=== PATIENT | male | born 1975 | race African-American/Black ===

== ENCOUNTER 2022-02-03 19:22 | Emergency (ER) | payer SELFPAY ==
[2022-02-03 20:20] LABS: Absolute Lymphocytes (CBC) 4.3 K/uL (0.7-4.9); Hematocrit 28.7 % (39.6-49.0); Lymphocytes % 20.7 % (15.3-44.8); MPV 6.7 fL (7.6-11.3); RBC Red Blood Cell Count 4.06 M/uL (4.33-5.43)
[2022-02-03] MEDS ORDERED: ACETAMINOPHEN 325 MG TABLET ONE (20:21)
[2022-02-03] MEDS ORDERED: MORPHINE 4 MG/ML SYR ONE (20:22)
[2022-02-03] MEDS ORDERED: NA CHLORIDE 0.9% 1,000 ML ONE (20:22)
[2022-02-03] MEDS ORDERED: ONDANSETRON 4 MG/2 ML VIAL ONE (20:22)
[2022-02-03 20:26] LABS: Protime INR 1.59
[2022-02-03 20:40] LABS: ALT/SGPT 38 U/L (12-78); AST/SGOT 28 U/L (15-37); Albumin 2.4 g/dL (3.4-5.0); Alkaline Phosphatase 186 U/L (45-117); BUN Blood Urea Nitrogen 7 mg/dL (7-18); Bicarbonate 23 mmol/L (21-32); Bilirubin Total 0.4 mg/dL (0.2-1.0); Glucose Level 101 mg/dL (74-106); Potassium 3.8 mmol/L (3.5-5.1); Protein, Total 9.5 g/dL (6.4-8.2); Sodium Level 131 mmol/L (136-145)
--- NOTE | 2022-02-03 20:58 | EDPHYS ---
Physician Documentation [facility] Name: Sea Lewis Age: 46 yrs Sex: Male : 1975 Arrival Date: 02/03/2022 Time: 19:28 Bed 15 Private MD: ED Physician Gage Pineda HPI: 02/03 20:08 This 46 yrs old Black Male presents to ER via EMS with complaints of Abdominal Pain. mh7 20:08 The patient presents with abdominal pain in the right upper quadrant. Onset: The mh7 symptoms/episode began/occurred 3 week(s) ago. The symptoms do not radiate. Associated signs and symptoms: Pertinent positives: fever, Pertinent negatives: nausea, vomiting, and diarrhea, anorexia, blood in stools, chest pain, constipation, diarrhea, dysuria, headache, hematuria, palpitations, shortness of breath, testicular pain, vomiting, vomiting blood. Associated signs and symptoms: Pertinent positives: dry cough. The symptoms are described as intermittent, vague, waxing/waning. Modifying factors: The symptoms are alleviated by nothing, the symptoms are aggravated by nothing. Severity of pain: At its worst the pain was moderate 14 day(s) ago, in the emergency department the pain has improved moderately. Patient reports that he was admitted to an outside hospital for abdominal pain about 3 weeks ago and left AMA today. He is not sure of the details of his diagnosis or tests at the other hospital.. Historical: - Allergies: 19:35 No Known Allergies; lp1 - Home Meds: 19:35 None [Active]; lp1 - PMHx: 19:35 ulcers; lp1 - PSHx: 19:35 None; lp1 - Immunization history:: Adult Immunizations up to date, Client reports having NOT received the Covid vaccine. - Social history:: Smoking status: Patient/guardian denies using tobacco, Stopped _ months ago 6. ROS: 20:08 Eyes: Negative for injury, pain, redness, and discharge, ENT: Negative for injury, mh7 pain, and discharge, Neck: Negative for injury, pain, and swelling, Cardiovascular: Negative for chest pain, palpitations, and edema, Back: Negative for injury and pain, : Negative for injury, bleeding, discharge, and swelling, MS/Extremity: Negative for injury and deformity, Skin: Negative for injury, rash, and discoloration, Neuro: Negative for headache, weakness, numbness, tingling, and seizure, Psych: Negative for depression, anxiety, suicide ideation, homicidal ideation, and hallucinations, Allergy/Immunology: Negative for hives, rash, and allergies, Endocrine: Negative for neck swelling, polydipsia, polyuria, polyphagia, and marked weight changes, Hematologic/Lymphatic: Negative for swollen nodes, abnormal bleeding, and unusual bruising. Exam: 20:08 Constitutional: This is a well developed, well nourished patient who is awake, alert, mh7 and in no acute distress. Head/Face: Normocephalic, atraumatic. Eyes: Pupils equal round and reactive to light, extra-ocular motions intact. Lids and lashes normal. Conjunctiva and sclera are non-icteric and not injected. Cornea within normal limits. Periorbital areas with no swelling, redness, or edema. Neck: Trachea midline, no thyromegaly or masses palpated, and no cervical lymphadenopathy. Supple, full range of motion without nuchal rigidity, or vertebral point tenderness. No Meningismus. Chest/axilla: Normal chest wall appearance and motion. Nontender with no deformity. No lesions are appreciated. 20:08 Skin: Warm, dry with normal turgor. Normal color with no rashes, no lesions, and no evidence of cellulitis. MS/ Extremity: Pulses equal, no cyanosis. Neurovascular intact. Full, normal range of motion. Neuro: Awake and alert, GCS 15, oriented to person, place, time, and situation. Cranial nerves II-XII grossly intact. Motor strength 5/5 in all extremities. Sensory grossly intact. Cerebellar exam normal. Normal gait. Psych: Awake, alert, with orientation to person, place and time. Behavior, mood, and affect are within normal limits. 20:08 Cardiovascular: Rate: tachycardic, Rhythm: regular, Pulses: no pulse deficits are appreciated, Heart sounds: normal, normal S1and S2, Edema: is not appreciated, JVD: is not appreciated. 20:08 Respiratory: the patient does not display signs of respiratory distress, Respirations: normal, Breath sounds: decreased breath sounds, that are mild, are scattered, rhonchi, that are mild, are scattered, Respiratory rate: 20 20:08 Abdomen/GI: Inspection: abdomen appears normal, Bowel sounds: normal, in all quadrants, Palpation: mild abdominal tenderness, in the right upper quadrant, mass, is not appreciated, rebound tenderness, is not appreciated, voluntary guarding, is not appreciated, involuntary guarding, is not appreciated, no appreciated organomegaly, Rectal exam: the exam is deferred, because of patient request, Indicators: McBurney's point is not tender, Jorgensen's sign is negative, Rovsing's sign is negative, Obturator sign is negative, Psoas sign is negative, Liver: no appreciated palpable abnormalities, Hernia: not appreciated. Vital Signs: 19:36 BP 139 / 86; Pulse 115; Resp 20; Temp 101.6(O); Pulse Ox 90% on R/A; Weight 104.33 kg lp1 (R); Height 6 ft. 3 in. (190.50 cm); Pain 0/10; 19:36 Body Mass Index 28.75 (104.33 kg, 190.50 cm) lp1 MDM: 20:50 Differential diagnosis: bowel obstruction, cholecystitis, Cholelithiasis, mh7 diverticulitis, gastritis, gastroesophageal reflux disease, Irritable bowel syndrome, non-specific abd pain, pancreatitis, Peptic Ulcer Disease, Perf. Duodenal Ulcer, Perf. Gastric Ulcer, Pyelonephritis, Ureterolithiasis, urinary tract infection. Data reviewed: vital signs, nurses notes, lab test result(s), CBC. Refusal of service: The patient/guardian displays adequate decision making capability and despite a detailed discussion of alternatives, benefits, risks, and consequences refuses: Admission to the hospital for further work-up and treatment, CT Scan, all lab tests, Medications, ultrasound. ED course: NAD, A A\\T\\ O x 4, no focal neurological deficits. Patient declined any further treatment, testing or evaluation and wants to leave against medical advice. Explained the possibility of permanent disability and/or if serious medical or surgical condition is present and goes undiagnosed/untreated. Patient has a normal mental status and neurological exam and verbalized that he understood this information as presented. He states that he will follow up with his doctor. He knows he can return to the ER if he has any concerns.. 02/03 19:55 Order name: Blood Culture Adult (2) [facility] 02/03 19:55 Order name: CBC with Diff [facility] 02/03 19:55 Order name: CMP; Complete Time: 20:43 [facility] 02/03 19:55 Order name: Lactate; Complete Time: 20:43 [facility] 02/03 19:55 Order name: Protime (+inr); Complete Time: 20:43 [facility] 02/03 19:55 Order name: Ptt, Activated; Complete Time: 20:43 [facility] 02/03 19:56 Order name: Procalcitonin [facility] 02/03 19:57 Order name: COVID-19 SARS RT PCR (Document "Date of Onset" if Symptomatic) [facility] 02/03 19:55 Order name: Accucheck [facility] 02/03 19:55 Order name: Cardiac monitoring; Complete Time: 20:28 [facility] 02/03 19:55 Order name: EKG - Nurse/Tech; Complete Time: 20:28 [facility] 02/03 19:55 Order name: IV Saline Lock - Large Bore; Complete Time: 20:28 [facility] 02/03 19:55 Order name: Labs collected and sent; Complete Time: 20:28 [facility] 02/03 19:55 Order name: O2 Per Protocol; Complete Time: 20:28 [facility] 02/03 19:55 Order name: O2 Sat Monitoring; Complete Time: 20:28 [facility] 02/03 19:55 Order name: Urine Dipstick-Ancillary (obtain specimen) [facility] Administered Medications: 20:23 Drug: Tylenol 650 mg Route: PO; sm5 20:23 Drug: NS 0.9% 1000 ml Route: IV; Rate: 1000 ml; Site: right antecubital; sm5 20:27 Not Given (Patient Refused): morphine 4 mg IVP once; RASS on ADMIN: Combtv4, Very sm5 Agttd3, Agttd2, Rstlss1, AlertClm0, Drwsy-1, Lt Sdtn-2, Mod Sdtn-3, Dp Sdtn-4, UnArsble-5 20:28 Not Given (Patient Refused): Zofran (Ondansetron) 4 mg IVP once; over 2 minutes sm5 20:47 Not Given (Patient Refused): vancoMYCIN 1 grams IVPB once over 2 hrs sm5 20:47 Not Given (Patient Refused): Zosyn (piperacillin-tazobactam) 3.375 grams IVPB once over sm5 60 mins; (mix in NS 100 mL) Disposition Summary: 02/03/22 20:57 Left Against Medical Advice Location: Home 5 Condition: Stable 5 Discharge Instructions: - Discharge Summary Sheet [facility] - Abdominal Pain, Adult, Kgip-[id number] [facility] - Fever, Adult, Rass-hq-Wdth [facility] Prescriptions: - Flagyl 500 mg Oral Tablet - take 1 tablet by ORAL route every 6 hours for 10 days; 40 tablet; Refills: 0, 7 Product Selection Permitted - levofloxacin 500 mg Oral Tablet - take 1 tablet by ORAL route once daily for 10 days; 10 tablet; Refills: 0, 7 Product Selection Permitted Signatures: Dispatcher [employer] Radha Up RN RN lp1 Gage Pineda MD MD 7 Estefania Brenner RN RN 5 Corrections: (The following items were deleted from the chart) 20:52 19:56 Chest Single View+RAD.RAD.BRZ ordered. EDAK EDAK
--- NOTE | 2022-02-03 20:58 | ER ---
Nurse's Notes [facility] Name: Sea Lewis Age: 46 yrs Sex: Male : 1975 Arrival Date: 02/03/2022 Time: 19:28 Bed 15 Private MD: Diagnosis: Presentation: 02/03 19:31 Chief complaint: EMS states: Called for RUQ abdominal pain; patient left AMA from [address] today for same complaint after argument with family member, and would like to be admitted for continued treatment. Onset of symptoms was February 03, 2022. 19:31 Method Of Arrival: EMS: [facility] 19:31 Acuity: BRENDON 2 [facility] 19:34 Note "I was at [facility] and I was going to be released tomorrow but me and my sister got [facility] into it and I left the hospital but Dr. Alvares said he will see me at this hospital"; Reports receiving treatment for his stomach ulcers. 19:35 Coronavirus screen: At this time, the client does not indicate any symptoms associated [facility] with coronavirus-19. Ebola Screen: No symptoms or risks identified at this time. Risk Assessment: Do you want to hurt yourself or someone else? Patient reports no desire to harm self or others. Note Patient reports he has stomach ulcers. 19:36 Initial Sepsis Screen: Does the patient meet any 2 criteria? Temp <36.0*C (96.8*F)) or lp1 > 38.3*C (100.9*F). HR > 90 bpm. Does the patient have a suspected source of infection? Yes: Acute abdominal pain. Triage Assessment: 20:55 General: Appears in no apparent distress. Behavior is appropriate for age. Pain: Denies sm5 pain. GI: Abdomen is flat, non-distended. Historical: - Allergies: 19:35 No Known Allergies; lp1 - Home Meds: 19:35 None [Active]; lp1 - PMHx: 19:35 ulcers; lp1 - PSHx: 19:35 None; lp1 - Immunization history:: Adult Immunizations up to date, Client reports having NOT received the Covid vaccine. - Social history:: Smoking status: Patient/guardian denies using tobacco, Stopped _ months ago 6. Screenin:54 Abuse screen: Denies threats or abuse. Denies injuries from another. Nutritional sm5 screening: No deficits noted. Tuberculosis screening: No symptoms or risk factors identified. Fall Risk None identified. Assessment: 20:48 Reassessment: pt rang call askew stating he wants to leave and see Dr. Alvares in the sm5 morning at his office. this RN explained to pt that a full work up is in progress and if he is sick due to something other than GI related, Dr Alvares will be unable to help, Informed pt he should consider staying to finish his work up to find out what is causing his fever and high heart rate. Pt still adamant that he wants to leave and go to Dr. Alvares's office in the morning. Explained to pt the risks of leaving, Dr. Pineda made aware, pt signed AMA form and IV removed.. 20:55 GI: Bowel sounds present X 4 quads. Abd is soft. sm5 Vital Signs: 19:36 BP 139 / 86; Pulse 115; Resp 20; Temp 101.6(O); Pulse Ox 90% on R/A; Weight 104.33 kg lp1 (R); Height 6 ft. 3 in. (190.50 cm); Pain 0/10; 19:36 Body Mass Index 28.75 (104.33 kg, 190.50 cm) lp1 ED Course: 19:28 Patient arrived in ED. kz 19:32 Triage completed. lp1 19:32 Arm band placed on right wrist. lp1 19:43 Estefania Brenner, MYNOR is Primary Nurse. sm5 19:44 Gage Pineda MD is Attending Physician. 7 19:45 Inserted saline lock: 20 gauge in right antecubital area, using aseptic technique. sm5 Blood collected. 20:55 Patient has correct armband on for positive identification. Placed in gown. Bed in low sm5 position. Call light in reach. 20:55 No provider procedures requiring assistance completed. IV discontinued, intact, sm5 bleeding controlled, No redness/swelling at site. Pressure dressing applied. Administered Medications: 20:23 Drug: Tylenol 650 mg Route: PO; sm5 20:23 Drug: NS 0.9% 1000 ml Route: IV; Rate: 1000 ml; Site: right antecubital; sm5 20:27 Not Given (Patient Refused): morphine 4 mg IVP once; RASS on ADMIN: Combtv4, Very sm5 Agttd3, Agttd2, Rstlss1, AlertClm0, Drwsy-1, Lt Sdtn-2, Mod Sdtn-3, Dp Sdtn-4, UnArsble-5 20:28 Not Given (Patient Refused): Zofran (Ondansetron) 4 mg IVP once; over 2 minutes 5 20:47 Not Given (Patient Refused): vancoMYCIN 1 grams IVPB once over 2 hrs sm5 20:47 Not Given (Patient Refused): Zosyn (piperacillin-tazobactam) 3.375 grams IVPB once over sm5 60 mins; (mix in NS 100 mL) Outcome: 20:55 AMA AMA form signed [facility] 20:55 Condition: unchanged 20:55 Instructed on risks of signing out AMA, educated to come back if fever or abdominal pain worsens 20:57 Patient left the ED. [facility] Signatures: Radha Gonzales RN RN 1 Gage Pineda MD MD [facility] Estefania Brenner RN RN [facility] Eunice Curtis Corrections: (The following items were deleted from the chart) 19:33 19:31 Chief complaint: EMS states: Called for RUQ abdominal pain; patient left AMA from [address] today for same complaint after argument with family member, and would like to be admitted for continued treatment [facility] 19:33 19:31 Method Of Arrival: Wheelchair [place] [id number] 19:39 19:34 Note "I was at [facility] and I was going to be released tomorrow but me and my [facility] sister got into it and I left the hospital but Dr. Alvares said he will see me at this hospital" [facility] 19:40 19:31 Acuity: BRENDON 3 [place] [id number]
[2022-02-03 21:41] LABS: Anisocytosis 1+; Blood Morphology Comment NOTED (NOT SEEN); Platelet Estimate INCR; Polychromasia SLIGHT
[2022-02-04 04:23] VITALS: BP 139/86; TEMP 101.6; O2SAT 90
--- NOTE | 2022-02-05 07:57 | EKG ---
Test Date: 2022-02-03 Test Time: 20:02:54 Felt Tipping Machine Tender: KALPANA MEASUREMENT RESULTS: Intervals: Rate: 106 VT: 146 QRSD: 80 QT: 360 QTc: 478 [place]: P: 35 VT: 146 QRS: 62 T: 93 INTERPRETIVE STATEMENTS: Sinus tachycardia Possible Left atrial enlargement Left ventricular hypertrophy T wave abnormality, consider lateral ischemia Abnormal ECG No previous ECG available for comparison Electronically Signed On 02-05-22 07:55:35 CDT by Isaac Dyer
== END 2022-02-03 20:57 | disposition left against medical advice (07) ==
LOC: ER 19:22
DX: R10.11 Right upper quadrant pain (principal); R50.9 Fever, unspecified; Z20.822 Contact with and (suspected) exposure to COVID-19
CPT/HCPCS: 36415; 80053; 83605; 84145; 85025; 85610; 85730; 87040; 93005; 99284; J2405; J7030; U0003

== ENCOUNTER 2022-02-04 05:44 | Emergency (ER) | payer SELFPAY ==
[2022-02-04] MEDS ORDERED: PIPERACIL/TAZO 3.375 GM VIAL IV ONE (08:10)
[2022-02-04] MEDS ORDERED: MORPHINE 4 MG/ML SYR ONE (08:10)
[2022-02-04] MEDS ORDERED: PANTOPRAZOLE 40 MG INJ ONE (08:10)
[2022-02-04] MEDS ORDERED: ONDANSETRON 4 MG/2 ML VIAL ONE (08:10)
[2022-02-04] MEDS ORDERED: NA CHLORIDE 0.9% 100 ML IV ONE (08:10)
[2022-02-04] MEDS ORDERED: NA CHLORIDE 0.9% 1,000 ML ONE (08:10)
--- NOTE | 2022-02-04 08:10 | RAD REPORT ---
EXAM DESCRIPTION: CTAbdomen Pelvis W Contrast - 02/04/2022 7:56 am CLINICAL HISTORY: Abdominal pain, acute, nonlocalized COMPARISON: No comparisons TECHNIQUE: CT of the abdomen and pelvis was performed with contrast. All CT scans are performed using dose optimization technique as appropriate and may include automated exposure control or mA/KV adjustment according to patient size. FINDINGS: Lower chest: Small right pleural effusion, a portion of which is likely chronic. Severe ar chitectural distortion and cystic changes in the lung bases. Mild thickening of distal esophagus. Liver: Benign-appearing 9 mm lesion in the hepatic dome. The liver is enlarged. Biliary: No biliary ductal dilatation. Stomach: No significant focal abnormality. Duodenum: No significant focal abnormality. Pancreas: No significant abnormality. Spleen: No significant abnormality. Adrenal: No suspicious lesions. Kidney/ureter: No hydronephrosis. No renal calculi. Retroperitoneum: No retroperitoneal adenopathy. Vascular: No aneurysm. Bowel: Diffuse fluid-filled small bowel and colon. No bowel obstruction is identified. No evidence of appendicitis.. Peritoneum: Trace ascites. Fat containing umbilical hernia. Bladder: Grossly unremarkable. Reproductive: No adnexal masses. Bones: No acute fracture. Other: n/a IMPRESSION: Fluid-filled small bowel and colon may represent a gastroenteritis or malabsorptive proc ess. No appendicitis identified. No bowel obstruction. Particularly age advanced destructive changes in the lung bases. Small right effusion also present, a t least a portion of which is probably chronic. The exact etiology is unclear. It could be sequelae o f prior pneumonia/pneumonitis (such as from aspriation) or other inflammatory process. Hepatomegaly.
--- NOTE | 2022-02-04 09:16 | ER ---
Nurse's Notes [facility] Name: Sea Lewis Age: 46 yrs Sex: Male : 1975 Arrival Date: 02/04/2022 Time: 05:51 Bed DIS1 Private MD: Diagnosis: Abdominal pain, unspecified;Gastritis, unspecified, without bleeding;Anemia, unspecified;Elevated white blood cell count Presentation: 02/04 06:07 Chief complaint: Patient states: "My ulcer is hurting"; Reports recent diagnosis of lp1 stomach ulcers, points to umbilical area for abdominal pain; Denies any nausea, vomiting. Coronavirus screen: At this time, the client does not indicate any symptoms associated with coronavirus-19. Ebola Screen: No symptoms or risks identified at this time. Risk Assessment: Do you want to hurt yourself or someone else? Patient reports no desire to harm self or others. Onset of symptoms was February 04, 2022. 06:07 Method Of Arrival: EMS: [facility] 1 06:07 Acuity: BRENDON 3 lp1 06:09 Initial Sepsis Screen: Does the patient meet any 2 criteria? No. Patient's initial lp1 sepsis screen is negative. Does the patient have a suspected source of infection? No. Patient's initial sepsis screen is negative. Triage Assessment: 06:12 General: Appears in no apparent distress. Behavior is calm, cooperative. Pain: lp1 Complains of pain in umbilical area Pain currently is 6 out of 10 on a pain scale. Quality of pain is described as sharp, Is intermittent. Cardiovascular: Patient's skin is warm and dry. GI: Abdomen is flat. Derm: Skin is intact, Skin is dry, Skin is normal. Historical: - Allergies: 06:09 No Known Allergies; lp1 - Home Meds: 06:09 None [Active]; lp1 - PMHx: 06:09 Ulcers; lp1 - PSHx: 06:09 None; lp1 - Immunization history:: Adult Immunizations up to date, Client reports having NOT received the Covid vaccine. - Social history:: Smoking status: Patient/guardian denies using tobacco, Stopped _ months ago 6. - Family history:: not pertinent. Vital Signs: 06:09 BP 125 / 73; Pulse 116; Resp 20; Temp 98.5(O); Pulse Ox 95% on R/A; Weight 102.06 kg lp1 (R); Height 6 ft. 3 in. (190.50 cm); Pain 6/10; 06:09 Body Mass Index 28.12 (102.06 kg, 190.50 cm) lp1 ED Course: 05:51 Patient arrived in ED. bp1 06:08 Triage completed. lp1 07:20 Kirit Quintana MD is Attending Physician. malachi 07:58 CT Abd/Pelvis - IV Contrast Only In Process Unspecified. EDMS 08:32 Mable Butler, RN is Primary Nurse. iw 09:16 Js Tobar MD is Referral Physician. malachi Administered Medications: 08:17 Drug: NS 0.9% 1000 ml Route: IV; Rate: 1 bolus; Site: right antecubital; iw 08:17 Drug: morphine 4 mg Route: IVP; Site: right antecubital; iw 09:00 Follow up: Response: No adverse reaction iw 08:17 Drug: Zofran (Ondansetron) 4 mg Route: IVP; Site: right antecubital; iw 08:35 Follow up: Response: No adverse reaction iw 08:18 Drug: ProTONIX (pantoprazole) 40 mg Route: IVP; Site: right antecubital; iw 08:37 Drug: Zosyn (piperacillin-tazobactam) 3.375 grams Route: IVPB; Infused Over: 60 mins; iw Site: right antecubital; Outcome: 09:16 Discharge ordered by . malachi 09:34 Patient left the ED. iw Signatures: Dispatcher [employer] EDNH Kirit Quitnana MD MD cha Williams, Irene, RN MYNOR iw Radah Gonzales RN RN lp1 Renetta Case [facility] Corrections: (The following items were deleted from the chart) 06:09 06:07 Chief complaint: Patient states: "My ulcer is hurting"; Reports recent diagnosis lp1 of stomach ulcers; Denies any nausea, vomiting lp1 06:12 06:07 Chief complaint: Patient states: "My ulcer is hurting"; Reports recent diagnosis lp1 of stomach ulcers; Denies any nausea, vomiting lp1 06:12 06:09 Temp 98.5F Oral; lp1 lp1
--- NOTE | 2022-02-04 09:16 | EDPHYS ---
Physician Documentation [facility] Name: Sea Lewis Age: 46 yrs Sex: Male : 1975 Arrival Date: 02/04/2022 Time: 05:51 Bed DIS1 Private MD: ED Physician Kirit Quintana HPI: 02/04 09:13 This 46 yrs old Black Male presents to ER via EMS with complaints of Abdominal Pain. malachi 09:13 The patient presents with abdominal pain in the epigastric area, in the upper abdomen, malachi abdominal distention in the upper abdomen. Onset: The symptoms/episode began/occurred 3 day(s) ago. The symptoms do not radiate. Associated signs and symptoms: none. The symptoms are described as crampy. Modifying factors: The symptoms are alleviated by nothing, the symptoms are aggravated by nothing. Severity of pain: At its worst the pain was mild in the emergency department the pain has resolved. The patient has experienced similar episodes in the past, several times. Historical: - Allergies: 06:09 No Known Allergies; lp1 - Home Meds: 06:09 None [Active]; lp1 - PMHx: 06:09 Ulcers; lp1 - PSHx: 06:09 None; lp1 - Immunization history:: Adult Immunizations up to date, Client reports having NOT received the Covid vaccine. - Social history:: Smoking status: Patient/guardian denies using tobacco, Stopped _ months ago 6. - Family history:: not pertinent. ROS: 09:13 Constitutional: Negative for fever, chills, and weight loss, Eyes: Negative for injury, malachi pain, redness, and discharge, ENT: Negative for injury, pain, and discharge, Neck: Negative for injury, pain, and swelling, Cardiovascular: Negative for chest pain, palpitations, and edema, Respiratory: Negative for shortness of breath, cough, wheezing, and pleuritic chest pain, Back: Negative for injury and pain, : Negative for injury, bleeding, discharge, and swelling, MS/Extremity: Negative for injury and deformity, Skin: Negative for injury, rash, and discoloration, Neuro: Negative for headache, weakness, numbness, tingling, and seizure, Psych: Negative for depression, anxiety, suicide ideation, homicidal ideation, and hallucinations, Allergy/Immunology: Negative for hives, rash, and allergies, Endocrine: Negative for neck swelling, polydipsia, polyuria, polyphagia, and marked weight changes, Hematologic/Lymphatic: Negative for swollen nodes, abnormal bleeding, and unusual bruising. 09:13 Abdomen/GI: Positive for abdominal pain. Exam: :13 Constitutional: This is a well developed, well nourished patient who is awake, alert, malachi and in no acute distress. Head/Face: Normocephalic, atraumatic. Eyes: Pupils equal round and reactive to light, extra-ocular motions intact. Lids and lashes normal. Conjunctiva and sclera are non-icteric and not injected. Cornea within normal limits. Periorbital areas with no swelling, redness, or edema. ENT: Nares patent. No nasal discharge, no septal abnormalities noted. Tympanic membranes are normal and external auditory canals are clear. Oropharynx with no redness, swelling, or masses, exudates, or evidence of obstruction, uvula midline. Mucous membranes moist. Neck: Trachea midline, no thyromegaly or masses palpated, and no cervical lymphadenopathy. Supple, full range of motion without nuchal rigidity, or vertebral point tenderness. No Meningismus. Chest/axilla: Normal chest wall appearance and motion. Nontender with no deformity. No lesions are appreciated. Cardiovascular: Regular rate and rhythm with a normal S1 and S2. No gallops, murmurs, or rubs. Normal PMI, no JVD. No pulse deficits. Respiratory: Lungs have equal breath sounds bilaterally, clear to auscultation and percussion. No rales, rhonchi or wheezes noted. No increased work of breathing, no retractions or nasal flaring. Abdomen/GI: Soft, non-tender, with normal bowel sounds. No distension or tympany. No guarding or rebound. No evidence of tenderness throughout. Back: No spinal tenderness. No costovertebral tenderness. Full range of motion. Skin: Warm, dry with normal turgor. Normal color with no rashes, no lesions, and no evidence of cellulitis. MS/ Extremity: Pulses equal, no cyanosis. Neurovascular intact. Full, normal range of motion. Neuro: Awake and alert, GCS 15, oriented to person, place, time, and situation. Cranial nerves II-XII grossly intact. Motor strength 5/5 in all extremities. Sensory grossly intact. Cerebellar exam normal. Normal gait. Psych: Awake, alert, with orientation to person, place and time. Behavior, mood, and affect are within normal limits. Vital Signs: 06:09 BP 125 / 73; Pulse 116; Resp 20; Temp 98.5(O); Pulse Ox 95% on R/A; Weight 102.06 kg lp1 (R); Height 6 ft. 3 in. (190.50 cm); Pain 6/10; 06:09 Body Mass Index 28.12 (102.06 kg, 190.50 cm) lp1 MDM: 08:32 Patient medically screened. malachi 09:17 Differential diagnosis: cholecystitis, Cholelithiasis, diverticulitis, gastritis, malachi gastroesophageal reflux disease, GI Bleed, non-specific abd pain, pancreatitis, Peptic Ulcer Disease, urinary tract infection. Data reviewed: vital signs, nurses notes, lab test result(s), radiologic studies, plain films. Data interpreted: neurology physician assistant: rate is 116 beats/min, rhythm is regular, Pulse oximetry: on room air. Counseling: I had a detailed discussion with the patient and/or guardian regarding: the historical points, exam findings, and any diagnostic results supporting the discharge/admit diagnosis, lab results, radiology results, the need for outpatient follow up, for definitive care, a family practitioner, a enrichment specialist. 02/04 07:23 Order name: CT Abd/Pelvis - IV Contrast Only; Complete Time: 09:09 malachi Administered Medications: 08:17 Drug: NS 0.9% 1000 ml Route: IV; Rate: 1 bolus; Site: right antecubital; iw 08:17 Drug: morphine 4 mg Route: IVP; Site: right antecubital; iw 09:00 Follow up: Response: No adverse reaction iw 08:17 Drug: Zofran (Ondansetron) 4 mg Route: IVP; Site: right antecubital; iw 08:35 Follow up: Response: No adverse reaction iw 08:18 Drug: ProTONIX (pantoprazole) 40 mg Route: IVP; Site: right antecubital; iw 08:37 Drug: Zosyn (piperacillin-tazobactam) 3.375 grams Route: IVPB; Infused Over: 60 mins; iw Site: right antecubital; Disposition Summary: 02/04/22 09:16 Discharge Ordered Location: Home malachi Problem: new malachi Symptoms: have improved malachi Condition: Stable malachi Diagnosis - Abdominal pain, unspecified malachi - Gastritis, unspecified, without bleeding malachi - Anemia, unspecified malachi - Elevated white blood cell count malachi Followup: malachi - With: Private Physician - When: 2 - 3 days - Reason: Recheck today's complaints, Continuance of care, Re-evaluation by your physician Followup: malachi - With: Js Tobar MD - When: 2 - 3 days - Reason: Recheck today's complaints, Continuance of care, Re-evaluation by your physician Discharge Instructions: - Discharge Summary Sheet malachi - Abdominal Pain, Adult malachi - Anemia malachi - Gastritis, Adult malachi - Gastritis, Adult, [id number] Forms: - Medication Reconciliation Form malachi - Thank You Letter malachi - Antibiotic Education malachi - Prescription Opioid Use [facility] Prescriptions: - Protonix 40 mg Oral Tablet - take 1 tablet by ORAL route once daily; 30 tablet; Refills: 0, Product [facility] Selection Permitted - Zofran 4 mg Oral Tablet - take 1 tablet by ORAL route every 12 hours As needed; 20 tablet; Refills: 0, [facility] Product Selection Permitted - dicyclomine 20 mg Oral Tablet - take 1 tablet by ORAL route 4 times per day; 28 tablet; Refills: 0, Product [facility] Selection Permitted Signatures: Dispatcher [employer] Kirit Larios MD MD cha Williams, Irene, RN RN Radha Camejo RN RN lp1
[2022-02-04 14:36] VITALS: BP 125/73; TEMP 98.5; O2SAT 95
== END 2022-02-04 09:34 | disposition home or self-care (01) ==
LOC: ER 05:44
DX: K29.70 Gastritis, unspecified, without bleeding (principal); R10.9 Unspecified abdominal pain; D64.9 Anemia, unspecified; D72.829 Elevated white blood cell count, unspecified
CPT/HCPCS: 74177; 96374; 96375; 99283; C9113; J2405; J2543; J7030; Q9967